=== PATIENT | male | born 1950 | race Caucasian/White ===

== ENCOUNTER 2019-01-17 05:26 | Day surgery (SDC) | payer MEDICARE ==
[2019-01-15 14:50] LABS: CLARITY,URINE CLEAR (Clear); COLOR,URINE STRAW (Yellow); GLUCOSE, URINE NEGATIVE (Neg); KETONES,URINE NEGATIVE (Neg); LEUKOCYTE ESTERASE ,URINE NEGATIVE (Neg); NITRITES, URINE NEGATIVE (Neg); OCCULT BLOOD,URINE NEGATIVE (Neg); PH,URINE 5.5 (4.8-8.0); PROTEIN,URINE NEGATIVE (Neg); UROBILINOGEN,URINE 0.2 E.U/dL (0.2-1.0)
[2019-01-15 14:55] LABS: UA COLLECTION TYPE CLN CATCH MIDSTREAM
[2019-01-15 15:02] LABS: PRE OP PROTIME 10.5 SECONDS (9.0-12.0)
[2019-01-15 15:03] LABS: BASOPHILS # (AUTO) 0.1 X10'3 (0-0.2); BASOPHILS % (AUTO) 1.6 % (0-1); EOSINOPHILS # (AUTO) 0.2 X10'3 (0-0.9); EOSINOPHILS % (AUTO) 2.8 % (0-6); LYMPHOCYTES # (AUTO) 1.5 X10'3 (1.1-4.8); LYMPHOCYTES % (AUTO) 24.4 % (21-51); MEAN CORPUSCULAR HEMOGLOBIN 31.2 PG (27.0-31.0); MEAN CORPUSCULAR HGB CONC 33.7 g/dL (33.0-36.5); MEAN CORPUSCULAR VOLUME 92.4 FL (78-98); MEAN PLATELET VOLUME 7.8 FL (7.4-10.4); MONOCYTES # (AUTO) 0.7 X10'3 (0-0.9); MONOCYTES % (AUTO) 10.6 % (2-12); NEUTROPHILS # (AUTO) 3.8 X10'3 (1.8-7.7); NEUTROPHILS % (AUTO) 60.6 % (42-75); PRE OP HEMATOCRIT 40.7 % (42.0-52.0); PRE OP HEMOGLOBIN 13.7 g/dL (14.0-17.9); PRE OP PLATELET COUNT 300 X10'3 (140-440); RED CELL DISTRIBUTION WIDTH 12.3 % (11.5-14.5)
[2019-01-15 15:04] LABS: ALBUMIN 3.8 G/DL (3.4-5.0); ALBUMIN/GLOBULIN RATIO 1.2 (1.1-1.5); ALKALINE PHOSPHATASE 88 IU/L (46-116); BLOOD UREA NITROGEN 29 MG/DL (7-18); BUN/CREATININE RATIO 21.5 (5.4-32.0); CALCIUM 8.8 MG/DL (8.5-10.1); CHLORIDE 104 MMOL/L (99-107); CREATININE 1.35 MG/DL (0.60-1.10); PRE OP ALT 29 U/L (30-65); PRE OP ANION GAP 12 (8-16); PRE OP AST 22 U/L (10-37); PRE OP BILIRUB, TOTAL 0.5 MG/DL (0.0-1.0); PRE OP GLUCOSE 102 MG/DL (70-104); PRE OP POTASSIUM 3.7 MMOL/L (3.4-5.1); PRE OP SODIUM 140 MMOL/L (135-145); TOTAL CARBON DIOXIDE 23.8 MMOL/L (24-32); TOTAL PROTEIN 7.1 G/DL (6.4-8.2); eGFR 52 ML/MIN
[~2019-01-17] VITALS: Ht 167.6 cm; Wt 67.6 kg
[2019-01-17] VITALS (19 sets, daily range): BP systolic 148–177; BP diastolic 72–106
[~2019-01-17 05:26] MED LIST: CYAN100019 PO; DIPH25CA83 PO; ESOM20CA PO; ETOD400T PO; FLUT16SP2 BOTHNARES; GARL1000 PO; GINK120C PO; GLUC-133 PO; HYDR12.5 PO; LACT1CAP65 PO; LISI40TA4 PO; MAGN400C PO; MULT-269 PO; ringers solution, lacted 1,000 ML IV SCH
[2019-01-17] MEDS ORDERED: cefazolin/dext.iso 2gm/50ml 50 ML IV ONE (05:30)
[2019-01-17] MEDS ORDERED: famotidine 20mg tablet PO ONE (05:30)
[2019-01-17] MEDS ORDERED: LIDOcaine 1% (10mg/ml) 2ml vial ONE (05:54)
[2019-01-17] MEDS ORDERED: ceFAZolin 1000mg inj ONE (06:52)
[2019-01-17] MEDS ORDERED: BUPIVAcaine/PF 2.5 mg/ml (0.25%) 30ml vial ONE (06:52)
[2019-01-17] MEDS ORDERED: ringers solution, lacted 1,000 ML IV SCH (07:33)
[2019-01-17] MEDS ORDERED: proCHLORperazine 10 MG/2 ml inj IV PRN (07:35)
[2019-01-17] MEDS ORDERED: ondansetron/PF 4mg/2ml inj IV PRN (07:35)
[2019-01-17] MEDS ORDERED: meperidine/PF 25mg/ml syringe IV PRN ×3 (07:35)
[2019-01-17] MEDS ORDERED: morphine 4 MG/ML inj SYRINge IV PRN ×2 (07:35)
[2019-01-17] MEDS ORDERED: fentaNYL/PF 50MCG/1 ML 2ML syringe ONE (07:41)
[2019-01-17] MEDS ORDERED: propofol inj 20 ML IV ONE (07:42)
[2019-01-17] MEDS ORDERED: midazolam 2 mg/2 ml injection ONE (07:42)
[2019-01-17] MEDS ORDERED: rocuronium 10mg/ml inj IV ONE (07:42)
[2019-01-17] MEDS ORDERED: acetaminophen 1,000mg/100ml IV 100 ML IV ONE (08:39)
[2019-01-17] MEDS ORDERED: glycopyrrolate 0.2mg/ml inj ONE (09:09)
[2019-01-17] MEDS ORDERED: neostigmine methylsulfate 1 MG/ML 10ml vial ONE (09:09)
--- NOTE | 2019-01-17 09:37 | NUR ---
Received from OR via [facility] , accompanied by Anesthesiologist FARHAT and report given by Anesthesiolgist. Two abdominal bandaids that are clean, dry, and intact. 20g IV in the R hand with lactated ringers running at 100ml. Patient is easily aroused, speech is clear. On 10L O2 mask, 100% saturated. Bear beth on patient. Addendum: 01/17/19 at 0954 by Phill Mullen RN, RN Amended: Links added.
--- NOTE | 2019-01-17 12:15 | NUR ---
PT BROUGHT TOT PAS FOR INABILITY TO VOID POST OP. VSS. PT UP TO BATHROOM NO SUCCESS. PT UP AND DRESSED WITH ASSISTANCE BY . AMB IN HALLS. TAKING PO FLUIDS WELL.
--- NOTE | 2019-01-17 12:17 | NUR ---
care turned over to Oliver june. accompanied to pas unit. all transfer criteria has been met. patient denies pain at incision sites but states he would like to void again. patient has ambluated 3x's with supervision in rr. no lob. given all dc instructions and signed paperwork for patient. Addendum: 01/17/19 at 1225 by Phill Mullen RN, RN Amended: Links added.
--- NOTE | 2019-01-17 13:15 | NUR ---
BLADDER SCAN = 135ML
--- NOTE | 2019-01-17 13:45 | NUR ---
PT FEELS VERY STRONG ALMOST PAINFUL URGE TO VOID BLADDER SCAN DOES NOT SHOW MUCH URINE IN BLADDER BUT POSSIBLE OBSTRUCTED BY POST OP DRESSING. FC PLACED WITH 16 FR COUDE DUE TO PTS BPH HX. URINE RETURN OF APPROX 150ML NOTED. PT STATES RELIEF.
--- NOTE | 2019-01-17 14:15 | NUR ---
DC INSTR GIVEN TO PT AND . FC CARE INSTR HANDOUT PROVIDED. ALSO TOLD PT TO F/U TUESDAY WITH DR. WONG FOR FC DC. IV DC'D. PT TO POV VIA W/C FOR DC HOME. DRIVING.
== END 2019-01-17 14:15 | disposition home or self-care (01) ==
LOC: PAS 05:26
PROVIDERS: ATTEND Surgery
DX: K40.20 Bilateral inguinal hernia, without obstruction or gangrene, not specified as recurrent (principal); M19.90 Unspecified osteoarthritis, unspecified site; N40.0 Benign prostatic hyperplasia without lower urinary tract symptoms; Z87.01 Personal history of pneumonia (recurrent); Z98.890 Other specified postprocedural states; Z79.899 Other long term (current) drug therapy; Z88.8 Allergy status to other drugs, medicaments and biological substances; Z72.89 Other problems related to lifestyle; Z80.0 Family history of malignant neoplasm of digestive organs; Z79.01 Long term (current) use of anticoagulants
CPT/HCPCS: 36415; 49505; 80053; 81003; 82948; 85025; 85610; 85730; 93005; C1781; J0131; J0690; J2001; J2250; J2704; J2710; J3010; J3490; A4215; A4314; A4618; A6258; A7000; J7120

== ENCOUNTER 2019-01-19 20:49 | Emergency (ER) | payer MEDICARE ==
[~2019-01-19] VITALS: Ht 167.6 cm; Wt 66.7 kg
[~2019-01-19 20:49] MED LIST changes: -ringers solution, lacted 1,000 ML IV SCH
[2019-01-19] MEDS ORDERED: tamsulosin 0.4mg capsule PO ONE (21:00)
[2019-01-19] MEDS ORDERED: bisacodyl 5mg tablet.DR PO STA (21:10)
[2019-01-19] MEDS ORDERED: lactulose 20gm/30ml cup PO ONE (21:10)
[2019-01-19] MEDS ORDERED: magnesium hydroxide 30ml (MOM) UD suspension PO ONE (21:10)
[2019-01-19] MEDS ORDERED: LIDOcaine 2% 10ml TOPICAL JELLY (Urojet) MM ONE (22:45)
[2019-01-19] MEDS ORDERED: FLO0.4C PO (23:04)
[2019-01-19 23:30] LABS: CLARITY,URINE CLEAR (Clear); COLOR,URINE YELLOW (Yellow); GLUCOSE, URINE NEGATIVE (Neg); KETONES,URINE NEGATIVE (Neg); LEUKOCYTE ESTERASE ,URINE NEGATIVE (Neg); NITRITES, URINE NEGATIVE (Neg); OCCULT BLOOD,URINE TRACE-INTACT (Neg); PROTEIN,URINE NEGATIVE (Neg); UA COLLECTION TYPE STRAIGHT CATH; UROBILINOGEN,URINE 0.2 E.U/dL (0.2-1.0)
[2019-01-19 23:36] LABS: WBC,URINE NONE SEEN /HPF (0-4)
[2019-01-19 23:37] LABS: BACTERIA,URINE NONE SEEN /HPF (Neg); MUCUS STRANDS NONE SEEN /LPF (Neg); SQUAMOUS EPITHELIAL CELL,UR NONE SEEN /LPF (FEW)
[2019-01-19 23:43] VITALS: BP 132/67
== END 2019-01-20 00:10 | disposition home or self-care (01) ==
LOC: ER 20:50
DX: R33.9 Retention of urine, unspecified (principal); N40.0 Benign prostatic hyperplasia without lower urinary tract symptoms; K59.00 Constipation, unspecified; I10 Essential (primary) hypertension; Z98.890 Other specified postprocedural states; Z88.8 Allergy status to other drugs, medicaments and biological substances; Z79.899 Other long term (current) drug therapy
CPT/HCPCS: 51702; 81001; 99284